=== PATIENT | female | born 1995 | race Hispanic/Latino ===

== ENCOUNTER 2021-11-16 02:26 | Emergency (ER) | payer SELFPAY | END 2021-11-16 03:33 | disposition home or self-care (01) | LOC: ERS 02:26 | DX: B34.9 Viral infection, unspecified (principal); Z20.822 Contact with and (suspected) exposure to COVID-19 | CPT/HCPCS: 99283 ==

== ENCOUNTER 2022-04-15 19:57 | Emergency (ER) | payer SELFPAY | END 2022-04-15 20:28 | disposition home or self-care (01) | LOC: ERS 19:57 | DX: Z48.02 Encounter for removal of sutures (principal) ==